=== PATIENT | female | born 1985 | race Caucasian/White ===

== ENCOUNTER 2017-12-11 07:35 | Inpatient (IN) | payer BC, OTHER ==
[~2017-12-11] VITALS: Ht 162.6 cm; Wt 77.7 kg
[~2017-12-11 07:35] MED LIST: MOMETASONE FURO30 ML TP; PRENATAL 1 PLU1 EACH PO
[2017-12-11 08:35] VITALS: BP 127/74
[2017-12-11] MEDS ORDERED: IBUPROFEN800 MG PO (09:19)
[2017-12-11] MEDS ORDERED: ENDOCET 5-3251 EACH PO (09:19)
[2017-12-11 09:25] VITALS: BP 128/77
[2017-12-11 12:36] VITALS: BP 129/81
[2017-12-12 07:01] LABS: BASOPHIL (%) 0.2 % (0-1); EOSINOPHIL (%) 0.8 % (0-5); EOSINOPHIL COUNT 0.1 K/uL (0-0.3); IMMATURE GRANULOCYTE (%) 0.4 % (0.0-0.7); LYMPHOCYTE (%) 21.2 % (15-42); LYMPHOCYTE COUNT 2.6 K/uL (1.0-2.8); MCHC 32.3 G/DL (30.0-36.0); MCV 80.5 FL (83-99); MONOCYTE (%) 4.7 % (3-12); MONOCYTE COUNT 0.6 K/uL (0-0.8); NEUTROPHIL (%) 72.7 % (45-76); NEUTROPHIL COUNT 8.9 K/uL (1.8-6.4); PLATELET COUNT 184 K/uL (156-360); RBC DIS.WIDTH-CV 15.5 % (11.8-14.6); RBC DIS.WIDTH-SD 44.9 % (39-53); RED BLOOD COUNT 3.85 M/uL (3.80-5.20); WHITE BLOOD COUNT 12.2 K/uL (4.1-10.2)
[2017-12-12 11:03] VITALS: BP 96/61
[2017-12-12 14:28] VITALS: BP 122/73
== END 2017-12-13 15:40 | disposition home or self-care (01) | DRG 765 ==
LOC: 2WEST 07:35 → 2SOUTH 08:48 → 2WEST 12-13 15:40
PROVIDERS: Obstetrics & Gynecology Gynecology
DX: O34.211 Maternal care for low transverse scar from previous cesarean delivery (principal); O69.81X0 Labor and delivery complicated by cord around neck, without compression, not applicable or unspecified; O24.420 Gestational diabetes mellitus in childbirth, diet controlled; O99.214 Obesity complicating childbirth; E66.01 Morbid (severe) obesity due to excess calories; Z68.42 Body mass index [BMI] 45.0-49.9, adult; O99.42 Diseases of the circulatory system complicating childbirth; R09.89 Other specified symptoms and signs involving the circulatory and respiratory systems; Z3A.39 39 weeks gestation of pregnancy; Z37.0 Single live birth; Z30.2 Encounter for sterilization
CPT/HCPCS: 36415; 80053; 82570; 82948; 84156; 85025; 86850; 86900; 86901; 88302; J0690; J1100; J2274; J2405; J2590; J7120